=== PATIENT | male | born 2000 | race Caucasian/White ===

== ENCOUNTER 2021-08-27 18:39 | Observation (INO) | payer OTHER ==
[2021-08-27 18:45] VITALS: BMI 25.7
[2021-08-27] MEDS ORDERED: Ondansetron PF 4 MG/2 ML Vial IVP PRN (20:43)
[2021-08-27] MEDS ORDERED: HYDROcodone/Acetaminophen 5/325 mg Tablet PO PRN ×2 (20:43)
[2021-08-27] MEDS ORDERED: Calcium Carbonate 500 MG ChewTAB PO PRN (20:43)
[2021-08-27] MEDS ORDERED: Senokot S 8.6-50 MG TAB PO PRN (20:43)
[2021-08-27] MEDS ORDERED: Acetaminophen 325 MG TAB PO PRN (20:43)
[2021-08-27 22:07] LABS: CKMB 7.9 ng/mL (0-6.6)
[2021-08-28 04:21] LABS: Anion Gap 12 mmol/L (10-20); BUN (Urea Nitrogen) 10 mg/dL (8.9-20.6); CK (CPK) 95 U/L (30-200); CRP (Inflammatory) 6.77 mg/dL (= or < 0.5); Calc. Creatinine Clearance 174 mL/min (70-130); Calcium 9.6 mg/dL (7.8-10.44); Carbon Dioxide 27 mmol/L (22-29); Chloride 107 mmol/L (98-107); Glucose 82 mg/dL (70-105); Potassium 3.9 mmol/L (3.5-5.1); Sodium 142 mmol/L (136-145)
[2021-08-28 04:24] LABS: ALT (SGPT) 35 U/L (8-55); AST (SGOT) 30 U/L (5-34); Albumin 4.4 g/dL (3.5-5.0); Alkaline Phosphatase 82 U/L (40-110); Bilirubin, Direct 0.3 mg/dL (0.1-0.3); Bilirubin, Total 0.6 mg/dL (0.2-1.2); Protein, Total 7.2 g/dL (6.0-8.3)
[2021-08-28 04:52] LABS: CKMB 4.5 ng/mL (0-6.6)
[2021-08-28 04:57] LABS: Hemoglobin 14.5 g/dL (13.5-17.5); Mean Corpuscular HGB CONC 34.4 g/dL (32.0-36.0); Mean Corpuscular Hemoglobin 32.2 pg (27.0-33.0); Mean Corpuscular Volume 93.6 fl (81.2-95.1); Platelet Count 252 10x3/uL (150-450); RBC Distribution Width 11.9 % (11.5-14.5); White Blood Cell (WBC) Count 5.5 10x3/uL (3.5-10.5)
[2021-08-28 06:34] LABS: MDiff Complete? YES
[2021-08-28 06:39] LABS: Band 3 % (5-11); Eosinophils 1 % (0-10); Lymphocytes 24 % (21-51); Monocytes 8 % (0-10); Neutrophil 52 % (42-75); Reactive Lymphocytes 12 % (0-10)
[2021-08-28] MEDS ORDERED: Aspirin 81 mg Enteric Coated Tablet PO SCH (09:00)
[2021-08-28] MEDS ORDERED: Enoxaparin Sodium 40 MG/0.4 ML SYRINGE SC SCH (09:00)
[2021-08-28] MEDS ORDERED: Colchicine 0.6 MG TAB PO SCH ×2 (15:30→21:00)
[2021-08-28 17:13] VITALS: BP 132/70; TEMP 98.7
== END 2021-08-28 18:47 | disposition home or self-care (01) ==
LOC: INTOOBSV 18:39 → CSHTELE 18:39 → EDSEX 18:39
PROVIDERS: ADMIT Hospitalist; ATTEND Hospitalist
DX: I41 Myocarditis in diseases classified elsewhere (principal); R07.81 Pleurodynia; R77.8 Other specified abnormalities of plasma proteins; R73.9 Hyperglycemia, unspecified; Z86.16 Personal history of COVID-19
CPT/HCPCS: 36415; 80048; 80076; 82550; 82553; 84484; 85025; 85652; 86140; 93005; 93010; 93306; 96372; G0378; J1650

== ENCOUNTER 2022-05-17 19:32 | Emergency (ER) | payer OTHER ==
[2022-05-17] MEDS ORDERED: Boostrix 0.5 ML (Tdap) VIAL ONE (19:52)
[2022-05-17] MEDS ORDERED: Lidocaine 1% (PF) 30 ML VIAL ONE (19:52)
== END 2022-05-17 20:20 | disposition home or self-care (01) ==
LOC: CSHERS 19:32
DX: S61.012A Laceration without foreign body of left thumb without damage to nail, initial encounter (principal); W26.0XXA Contact with knife, initial encounter
CPT/HCPCS: 12001; 90471; 90715; J2001